=== PATIENT | male | born 1965 | race Caucasian/White ===

== ENCOUNTER 2019-07-30 14:36 | Emergency (ER) | payer OTHER ==
--- NOTE | 2019-07-30 15:22 | RADIOLOGY REPORT (SQ) ---
EXAM DESCRIPTION: CHEST SINGLE VIEW IMAGES COMPLETED DATE/TIME: 07/30/2019 3:04 pm REASON FOR STUDY: CHEST PAIN COMPARISON: None. EXAM PARAMETERS: NUMBER OF VIEWS: One view. TECHNIQUE: Single frontal radiographic view of the chest acquired. RADIATION DOSE: NA LIMITATIONS: None. FINDINGS: LUNGS AND PLEURA: No opacities, masses or pneumothorax. No pleural effusion. MEDIASTINUM AND HILAR STRUCTURES: No masses. Contour normal. HEART AND VASCULAR STRUCTURES: Heart normal in size. Normal vasculature. BONES: No acute findings. HARDWARE: None in the chest. OTHER: No other significant finding. IMPRESSION: NO ACUTE RADIOGRAPHIC FINDING IN THE CHEST. TECHNICAL DOCUMENTATION: JOB ID: [id number] 2010 [employer]- All Rights Reserved Reading location - IP/workstation name: [email or web address]
[2019-07-30] MEDS ORDERED: ASPIRIN 81 MG TABLET, CHEWABLE PO ONE (16:40)
[2019-07-30] MEDS ORDERED: MORPHINE SULFATE 10 MG/ML INJ IV ONE (16:42)
--- NOTE | 2019-07-30 16:43 | ER Document Report ---
ED Cardiac - General Mode of Arrival: Ambulatory Information source: Patient - HPI Patient complains to provider of: Chest pain Chest pain location: Under breast Quality of pain: Achy Chest pain radiation location: Left arm Pain level currently: 4 Cardiac risk factors: Diabetes, Hypertension, Smoker, Dyslipidemia. denies: Hx AL Associated symptoms: denies: Abdominal pain, Diaphoresis, Headache, Syncope, Weakness Exacerbated by: Denies Relieved by: Nothing Similar symptoms previously: Yes Recently seen / treated by doctor: Yes - Last month <HANNA PUENTE - Last Filed: 07/30/19 20:25> <ANURAG CORNEJO - Last Filed: 07/31/19 02:45> - General Chief Complaint: Chest Pain Stated Complaint: CHEST PAIN Time Seen by Provider: 07/30/19 16:23 Notes: Patient states that he traveled here from [place] yesterday. Patient states that he was sleeping this afternoon and woke up suddenly at 1 PM with chest pain that radiated to the left upper arm. Patient states that he was dizzy at the time and that the dizziness recurs when he is standing but resolved when he was laying down. Patient denies any nausea vomiting or diarrhea. Patient denies any shortness of breath or fever. Patient states he does have a cough but this is chronic that he attributes to smoking and his COPD. Patient states that he was sleeping yesterday with his grandchild with his arm raised up in an awkward position. Patient states that he did have an elevated troponin last month and was hospitalized in [place], patient reports that his troponin was 100. Patient denies having any heart catheterization or stress test at that time. Patient reports an underlying history of hypertension, COPD, diabetes, CVA and sleep apnea. Patient also states he has chronic back pain for which he takes narcotics regularly. Patient states that he left [place] and forgot to bring his narcotics with him. (HANNA PUENTE) - Related Data Allergies/Adverse Reactions: No Known Allergies Allergy (Verified 07/30/19 15:10) Past Medical History - General Information source: Patient - Social History Smoking Status: Current Every Day Smoker Frequency of alcohol use: None Drug Abuse: Marijuana Occupation: None Lives with: Family Family History: Reviewed & Not Pertinent Patient has homicidal ideation: No - Past Medical History Cardiac Medical History: Reports: Hx Hypercholesterolemia, Hx Hypertension Pulmonary Medical History: Reports: Hx COPD, Hx Sleep Apnea Neurological Medical History: Reports: Hx Cerebrovascular Accident Endocrine Medical History: Reports: Hx Diabetes Mellitus Type 2 Musculoskeletal Medical History: Reports Hx Arthritis Past Surgical History: Reports: Hx Orthopedic Surgery - back <HANNA PUENTE - Last Filed: 07/30/19 20:25> Review of Systems - Review of Systems Constitutional: No symptoms reported. denies: Fever EENT: No symptoms reported Cardiovascular: Chest pain Respiratory: Cough. denies: Short of breath Gastrointestinal: No symptoms reported. denies: Abdominal pain, Nausea, Vomiting Genitourinary: No symptoms reported Male Genitourinary: No symptoms reported Musculoskeletal: Back pain - chronic Skin: No symptoms reported Hematologic/Lymphatic: No symptoms reported Neurological/Psychological: No symptoms reported <HANNA PUENTE - Last Filed: 07/30/19 20:25> Physical Exam - General General appearance: Appears well, Alert In distress: None - HEENT Head: Normocephalic, Atraumatic Eyes: Normal Conjunctiva: Normal Nasal: Normal Mouth/Lips: Normal Mucous membranes: Normal Neck: Normal, Supple. No: Lymphadenopathy - Respiratory Respiratory status: No respiratory distress. No: Cyanosis, Labored, Tachypnea Chest status: Tender Breath sounds: Normal Chest palpation: Tender - Cardiovascular Rhythm: Regular Heart sounds: S1 appreciated, S2 appreciated - Abdominal Inspection: Normal Distension: No distension Bowel sounds: Normal Tenderness: Nontender Organomegaly: No organomegaly - Back Back: Normal, Nontender. No: CVA tenderness - Extremities General upper extremity: Normal inspection General lower extremity: Normal inspection, Nontender - Neurological [place] Coma Scale Eye Opening: Spontaneous Antony Coma Scale Verbal: Oriented Antony Coma Scale Motor: Obeys Commands Antony Coma Scale Total: 15 - Psychological Associated symptoms: Normal affect, Normal mood - Skin Skin Temperature: Warm Skin Moisture: Dry Skin Color: Normal <HANNA PUENTE - Last Filed: 07/30/19 20:25> - Vital signs Vitals: Temp 98.3 F 07/30/19 14:36 Course - Laboratory Result Diagrams: 07/30/19 15:00 07/30/19 17:10 - Diagnostic Test Radiology reviewed: Reports reviewed - EKG Interpretation by Me EKG shows normal: Sinus rhythm Voltage: Consistant with LVH <KWAMEHANNA Mai - Last Filed: 07/30/19 20:25> - Laboratory Result Diagrams: 07/30/19 15:00 07/30/19 17:10 <ANURAG CORNEJO - Last Filed: 07/31/19 02:45> - Re-evaluation Re-evalutation: 07/30/19 18:54 Patient resting comfortably states that his pain is almost completely resolved at this time. Patient with elevated dimer with recent long distance travel, will perform CTA to evaluate for possible pulmonary embolism at this time. Did speak with laboratory aide and chemistry as patient's troponin test is still pending at this time. Gas Meter Checker states it should be resulting shortly. 07/30/19 19:22 Patient's troponin finally resulted after an additional phone call to the laboratory aide. Patient with elevated troponin. 07/30/19 19:[address] Mendenhall who agrees with plan to apply Nitropaste and administer Lovenox subcu, also recommends transfer to [facility] due to positive troponin at this time. Patient presently pain-free. 07/30/19 19:[address] Moss at [facility] to recommends repeating troponin and obtain a negative COVID test prior to him being able to accept patient. digital asset specialist advised of need for rapid COVID test. 07/30/19 20:06 Report and handoff given to THEA Duncan (HANNA PUENTE) 07/30/19 21:36 I reevaluated patient at bedside. He is currently chest pain-free although he is hypertensive. Cocaine is positive. Patient states surprised at this, he states that he thought he was just smoking weed, he did smoke yesterday and states he wonders if it was mixed in. Patient was given Ativan. Nursing staff tells me patient is requesting to leave. Repeat troponin is extremely changed and is now 16, patient has received Lovenox, aspirin, nitroglycerin, and on requestioning he still states he is chest pain-free. I discussed with patient at bedside, discussed that his troponin is very significantly changed from prior, after patient was informed of this he did change his mind, he states he is in agreement with being transferred to [facility]. COVID test is still pending, will contact [facility]. Contacted [facility], informed them troponin significantly changed. Dr. Polk recommends we add Plavix. Given 300 mg loading dose. 07/30/19 22:30 COVID-19 negative, contacted [facility] again, pending room assignment, patient accepted by Dr. Moss. 07/31/19 00:45 Patient reevaluated at bedside. Patient denies current chest pain, states appreciation for care, no significant change from prior. Stable for transport. (ANURAG CORNEJO) - Vital Signs Vital signs: Temp Pulse Resp BP Pulse Ox 98.2 F 62 18 158/99 H 94 07/30/19 18:56 07/30/19 18:56 07/30/19 23:00 07/30/19 22:45 07/30/19 23:00 - Laboratory Laboratory results interpreted by me: 07/30/19 07/30/19 07/30/19 15:00 15:00 17:10 WBC 14.8 H RDW 14.1 H Absolute Neuts (auto) 10.2 H D-Dimer 0.70 H Sodium 134.2 L Potassium 3.4 L Chloride 95 L BUN 34 H Creatinine 1.38 H Est GFR (MDRD) Non-Af 53 L Glucose 148 H AST 60 H Urine Protein Urine Glucose (UA) 07/30/19 19:40 WBC RDW Absolute Neuts (auto) D-Dimer Sodium Potassium Chloride BUN Creatinine Est GFR (MDRD) Non-Af Glucose AST Urine Protein 30 H Urine Glucose (UA) 150 H - EKG Interpretation by Me Additional EKG results interpreted by me: 07/30/19 19:48 Patient with some nonspecific T wave inversion in lead I and aVL, QTc 441 (HANNA PUENTE) Discharge <HANNA PUENTE - Last Filed: 07/30/19 20:25> <ANURAG CORNEJO - Last Filed: 07/31/19 02:45> - Discharge Clinical Impression: NSTEMI (non-ST elevated myocardial infarction), Cocaine use Chest pain Qualifiers: Chest pain type: unspecified Qualified Code(s): R07.9 - Chest pain, unspecified Condition: Stable Disposition: [facility]
[2019-07-30 16:59] LABS: ABSOLUTE BASOPHILS # (AUTO) 0.1 10^3/uL (0.0-0.2); ABSOLUTE EOSINOPHILS # (AUTO) 0.2 10^3/uL (0.0-0.6); ABSOLUTE LYMPHOCYTES (AUTO) 3.1 10^3/uL (0.5-4.7); ABSOLUTE MONOCYTES (AUTO) 1.3 10^3/uL (0.1-1.4); ABSOLUTE NEUT (AUTO) 10.2 10^3/uL (1.7-8.2); BASOPHILS % (AUTO) 0.5 % (0-2); EOSINOPHILS % (AUTO) 1.4 % (0-6); HEMATOCRIT 48.6 % (37.9-51.0); HEMOGLOBIN 16.6 g/dL (13.5-17.0); LYMPHOCYTES % (AUTO) 20.6 % (13-45); MEAN CORPUSCULAR HEMOGLOBIN 30.3 pg (27.0-33.4); MEAN CORPUSCULAR HGB CONC 34.2 g/dL (32.0-36.0); MEAN CORPUSCULAR VOLUME 89 fl (80-97); MONOCYTES % (AUTO) 8.8 % (3-13); RED BLOOD COUNT 5.47 10^6/uL (4.35-5.55); RED CELL DISTRIBUTION WIDTH 14.1 % (11.5-14.0); SEGMENTED NEUTROPHILS % (AUTO) 68.7 % (42-78); TOTAL CELLS COUNTED % (AUTO) 100 %; WHITE BLOOD COUNT 14.8 10^3/uL (4.0-10.5)
[2019-07-30 17:37] LABS: PLATELET COUNT 278 10^3/uL (150-450)
[2019-07-30 18:21] LABS: ALBUMIN 3.7 g/dL (3.5-5.0); ALKALINE PHOSPHATASE 78 U/L (38-126); ANION GAP 10 (5-19); ASPARTATE AMINO TRANSFERASE 60 U/L (17-59); BILIRUBIN,TOTAL 0.4 mg/dL (0.2-1.3); BLOOD UREA NITROGEN 34 mg/dL (7-20); CALCIUM 8.9 mg/dL (8.4-10.2); CARBON DIOXIDE 29 mmol/L (22-30); CHLORIDE 95 mmol/L (98-107); GLUCOSE 148 mg/dL (75-110); POTASSIUM 3.4 mmol/L (3.6-5.0); TOTAL PROTEIN 6.5 g/dL (6.3-8.2)
[2019-07-30] MEDS ORDERED: NORMAL SALINE 1000 ML 1,000 ML IV ONE (18:31)
--- NOTE | 2019-07-30 19:28 | RADIOLOGY REPORT (SQ) ---
EXAM DESCRIPTION: CTA CHEST IMAGES COMPLETED DATE/TIME: 07/30/2019 7:06 pm REASON FOR STUDY: cp, elevated dimer COMPARISON: None. TECHNIQUE: CT scan of the chest performed using helical scanning technique with dynamic intravenous contrast injection. Images reviewed with lung, soft tissue and bone windows. Reconstructed coronal and sagittal MPR images reviewed. Additional 3 dimensional post-processing performed to develop Maximal Intensity Projection images (MD P). All images stored on PACS. All CT scanners at this facility use dose modulation, iterative reconstruction, and/or weight based d osing when appropriate to reduce radiation dose to as low as reasonably achievable (ALARA). [facility]: Dose Right [facility]: CareDose [facility]: Dose Right [facility]: Teradose 4D [facility]: Tryolabs CONTRAST TYPE AND DOSE: contrast/concentration: Isovue 350.00 mg/ml; Total Contrast Delivered: 69.0 ml; Total Saline Delivered: 62.0 ml Contrast bolus optimized for the pulmonary arteries. Not diagnostic for the aorta. RENAL FUNCTION: Creatinine -1.38 BUN =34 RADIATION DOSE: CT Rad equipment meets quality standard of care and radiation dose reduction techniq ues were employed. CTDIvol: 35.7 - 37.5 mGy. DLP: 1509 mGy-cm. . LIMITATIONS: None. FINDINGS: LUNGS AND PLEURA: Motion artifact limits the examination somewhat. Diffuse ground-glass attenuated areas in the lungs may be on the basis of atypical infections, inflammatory changes. A fe w very small subcentimeter pulmonary nodules. No pneumothorax or pleural effusion. The central airw ays are clear. AORTA AND GREAT VESSELS: No aneurysm. Contrast bolus not optimized for the aorta. HEART: Coronary artery calcifications. Cardiomegaly. No pericardial effusion. No significant coron lucian artery calcifications. PULMONARY ARTERIES: There is fair opacification of the pulmonary arterial system with IV contrast. As can best be determined, no emboli visualized in the main pulmonary arteries or the segmental branc hes. HILAR AND MEDIASTINAL STRUCTURES: No identified masses or abnormal nodes. HARDWARE: None in the chest. UPPER ABDOMEN: Mild nodular thickening of the left adrenal gland. Small spleen you, normal anatomic variant. Small hiatal hernia. No significant findings. Limited exam. THYROID AND OTHER SOFT TISSUES: No masses. No adenopathy. BONES: No acute or significant finding. 3D MIPS: Confirm above findings. OTHER: Subscapularis bursal fluid on the right may represent bursitis. IMPRESSION: 1. Fair opacification of the pulmonary arterial system with IV contrast. As can best b e determined, no acute pulmonary emboli in the main pulmonary arteries or the segmental branches. 2. Bilateral diffuse ground-glass attenuated areas in the lungs may be on the basis of atypical infe ctions, inflammatory etiologies. 3. Additional findings as above. COMMENT: Quality ID # [id number]: Final reports with documentation of one or more dose reduction techniques (e.g., Automated exposure control, adjustment of the mA and/or kV according to patient size, use of iterative reconstruction technique) TECHNICAL DOCUMENTATION: JOB ID: [id number] 2010 [employer]- All Rights Reserved Reading location - IP/workstation name: [email or web address]
[2019-07-30] MEDS ORDERED: NITROGLYCERIN 2% OINTMENT 1 GM PACKET TP ONE (19:33)
[2019-07-30] MEDS ORDERED: ENOXAPARIN SODIUM INJ 100 MG/1 ML DISP.SYRIN SUBCUT ONE (19:40)
[2019-07-30 20:15] LABS: URINE AMPHETAMINES SCREEN NEGATIVE; URINE BARBITURATES SCREEN NEGATIVE; URINE BENZODIAZEPINES SCREEN NEGATIVE; URINE METHADONE SCREEN NEGATIVE; URINE PHENCYCLIDINE SCREEN NEGATIVE
[2019-07-30 20:22] LABS: URINE COCAINE SCREEN UNCONFIRMED POSITIVE; URINE MARIJUANA (THC) SCREEN UNCONFIRMED POSITIVE
[2019-07-30 21:16] LABS: APPEARANCE,URINE CLEAR; BILIRUBIN,URINE NEGATIVE (NEGATIVE); COLOR,URINE YELLOW; GLUCOSE, URINE 150 mg/dL (NEGATIVE); KETONES,URINE NEGATIVE (NEGATIVE); LEUKOCYTE ESTERASE,URINE NEGATIVE (NEGATIVE); NITRITE,URINE NEGATIVE (NEGATIVE); PROTEIN,URINE 30 mg/dL (NEGATIVE); URINE SPECIFIC GRAVITY 1.021; UROBILINOGEN,URINE NEGATIVE mg/dL (<2.0)
[2019-07-30] MEDS ORDERED: LORAZEPAM INJ 2 MG/1 ML VIAL IV ONE (21:36)
[2019-07-30] MEDS ORDERED: CLOPIDOGREL BISULFATE 300 MG TABLET PO ONE (22:39)
--- NOTE | 2019-07-30 22:43 | ER Document Report ---
Doctor's Note Notes: 07/30/19 22:40 This is a 54-year-old male primarily seen by midlevel providers here today but I have also evaluated this gentleman. He is just presented here from [place] and complained of some transient chest discomfort with some T wave inversions noted in multiple leads but no acute ST shift. His initial troponin was mildly elevated around 1.5. His repeat troponin is up to 16. He is pain-free after getting 1 dose of IV fentanyl and his follow-up EKG was unchanged from the first. He has been given aspirin Nitropaste and Plavix. He has been started on Lovenox. Case was discussed with on-call show horse driver Dr. Mendenhall who recommended that we transfer him over to [facility] in [place] for admission as he will need heart catheterization. We also note that he has positive urine screen for cocaine. He has been accepted for transfer by Dr. Moss. Impression: And cocaine abuse acute non-STEMI
[2019-07-30 23:03] VITALS: BP 158/99
--- NOTE | 2019-07-31 07:47 | EKG REPORT ---
SEVERITY:- ABNORMAL ECG - SINUS RHYTHM LEFT ATRIAL ABNORMALITY LEFT VENTRICULAR HYPERTROPHY PROBABLE INFERIOR INFARCT, AGE INDETERMINATE LATERAL LEADS ARE ALSO INVOLVED : Confirmed by: Beti Howard MD 31-Jul-2019 07:47:19
--- NOTE | 2019-07-31 07:48 | EKG REPORT ---
SEVERITY:- ABNORMAL ECG - SINUS RHYTHM PROBABLE LEFT ATRIAL ABNORMALITY NONSPECIFIC INTRAVENTRICULAR CONDUCTION DELAY LVH WITH SECONDARY REPOLARIZATION ABNORMALITY : Confirmed by: Beti Howard MD 31-Jul-2019 07:47:33
== END 2019-07-31 01:20 | disposition short-term general hospital (02) ==
LOC: ER 14:36
DX: I21.4 Non-ST elevation (NSTEMI) myocardial infarction (principal); R07.9 Chest pain, unspecified; F14.90 Cocaine use, unspecified, uncomplicated; R42 Dizziness and giddiness; F17.200 Nicotine dependence, unspecified, uncomplicated; E78.00 Pure hypercholesterolemia, unspecified; I10 Essential (primary) hypertension; Z86.73 Personal history of transient ischemic attack (TIA), and cerebral infarction without residual deficits; E11.9 Type 2 diabetes mellitus without complications; Z03.818 Encounter for observation for suspected exposure to other biological agents ruled out
CPT/HCPCS: 93005; 99285; 96372; 96361; 96374; 96375; 36415; 83735; 85025; 87635; 80053; 81001; 84484; 80307; 85379; 71045; 71275; 93010; J3490; J2270; J2060; J7030; J1650